=== PATIENT | male | born 1985 | race Caucasian/White ===

== ENCOUNTER 2016-05-20 00:30 | Emergency (ER) | payer SELFPAY ==
--- NOTE | 2016-05-20 00:40 | PDOC ---
History of Present Illness - General Chief Complaint: Laceration Stated Complaint: EYEBROW LAC Time Seen by Provider: 05/20/16 00:39 History Source: Patient Exam Limitations: No Limitations - History of Present Illness Timing/Duration: reports: just prior to arrival Past History - Past Medical History Allergies/Adverse Reactions: Allergies Allergy/AdvReac Type Severity Reaction Status Date / Time No Known Allergies Allergy Verified 05/20/16 00:39 Home Medications: Ambulatory Orders NK [No Known Home Medication] 05/20/16 Review of Systems - Review of Systems Able to Perform ROS?: Yes Comments:: 05/20/16 00:42 CONSTITUTIONAL: Absent: fever, chills, diaphoresis, generalized weakness, malaise, loss of appetite HEENT: +2cm horizontal left eyebrow lac; slight active bleed Absent: rhinorrhea, nasal congestion, throat pain, throat swelling, difficulty swallowing, mouth swelling, ear pain, eye pain, visual Changes CARDIOVASCULAR: Absent: chest pain, loss of consciousness, palpitations, irregular heart rate, peripheral edema RESPIRATORY: Absent: cough, shortness of breath, dyspnea with exertion, orthopnea, wheezing, stridor, hemoptysis GASTROINTESTINAL: Absent: abdominal pain, abdominal distension, nausea, vomiting, diarrhea, constipation, melena, hematochezia GENITOURINARY: Absent: dysuria, frequency, urgency, hesitancy, hematuria, flank pain, genital pain MUSCULOSKELETAL: Absent: myalgia, arthralgia, joint swelling SKIN: Absent: rash, itching, pallor Is the patient limited [place] proficient: No *Physical Exam - Physical Exam Comments: 05/20/16 00:43 GENERAL: Well developed, well nourished. Awake and alert. No acute distress. HEENT: 2cm horizontal left eyebrow lac Normocephalic, atraumatic. PERRLA, EOMI. No conjunctival pallor. Sclera are non- icteric. Moist mucous membranes. Oropharynx is clear. NECK: Supple. Full ROM. No JVD. Carotid pulses 2+ and symmetric, without bruits. No thyromegaly. No lymphadenopathy. CARDIOVASCULAR: Regular rate and rhythm. No murmurs, rubs, or gallops. Distal pulses are 2+ and symmetric. PULMONARY: No evidence of respiratory distress. Lungs clear to auscultation bilaterally. No wheezing, rales or rhonchi. ABDOMINAL: Soft. Non-tender. Non-distended. No rebound or guarding. No organomegaly. Normoactive bowel sounds. MUSCULOSKELETAL Normal range of motion at all joints. No bony deformities or tenderness. No CVA tenderness. EXTREMITIES: No cyanosis. No clubbing. No edema. No calf tenderness. SKIN: Warm and dry. Normal capillary refill. No rashes. No jaundice. Progress Note - Progress Note Progress Note: 30-year-old male presents to the emergency department complaining of a laceration to the left eyebrow. Patient states he accidentally hit it against the wall after he tripped. Patient denies any headache, dizziness, lightheadedness, visual disturbance, blurry vision, pain, neck pain. Tetanus: 4 years ago. Procedure: Betadine prep 1% lidocaine: 3 mL Normal saline: Copious irrigation (4) 5.0 prolene simple interrupted bacitracin Bandaid *DC/Admit/Observation/Transfer Diagnosis at time of Disposition: Laceration of eyebrow, left Qualifiers: Encounter type: initial encounter Qualified Code(s): S01.112A - Laceration without foreign body of left eyelid and periocular area, initial encounter - Discharge Dispostion Disposition: HOME Condition at time of disposition: Improved - Patient Instructions Printed Discharge Instructions: DI for Laceration Repair Additional Instructions: Keep the incision clean and dry for 24 hours. After 24 hours, you may allow the soap and water to rinse off your incision. Avoid direct pressure of the water to the incision. Pat the incision dry with a clean clothe. Apply a small amount of bacitracin onto the incision. Cover the incision loosely with a bandaid. Take tylenol/motrin as needed for pain. Follow up with your physician or the ER in 48 hours for a wound check. Return to the ER if you notice red streaks, increase redness/swelling/severe pain to the incision. Suture removal in 7 days.
[2016-05-20 00:41] VITALS: BP 130/71; PULSE 67; TEMP 98; BMI 22.4
--- NOTE | 2016-05-20 00:41 | PDOC ---
*Physical Exam - Vital Signs Last Vital Signs Temp Pulse Resp BP Pulse Ox 98 F 67 14 130/71 98 05/20/16 00:39 05/20/16 00:39 05/20/16 00:39 05/20/16 00:39 05/20/16 00:39 Medical Decision Making - Medical Decision Making 05/20/16 00:41 agree with care from SARAH Baeza *DC/Admit/Observation/Transfer Diagnosis at time of Disposition: Laceration of eyebrow, left Qualifiers: Encounter type: initial encounter Qualified Code(s): S01.112A - Laceration without foreign body of left eyelid and periocular area, initial encounter - Discharge Dispostion Disposition: HOME Condition at time of disposition: Improved - Referrals - Patient Instructions Printed Discharge Instructions: DI for Laceration Repair Additional Instructions: Keep the incision clean and dry for 24 hours. After 24 hours, you may allow the soap and water to rinse off your incision. Avoid direct pressure of the water to the incision. Pat the incision dry with a clean clothe. Apply a small amount of bacitracin onto the incision. Cover the incision loosely with a bandaid. Take tylenol/motrin as needed for pain. Follow up with your physician or the ER in 48 hours for a wound check. Return to the ER if you notice red streaks, increase redness/swelling/severe pain to the incision. Suture removal in 7 days. - Post Discharge Activity
== END 2016-05-20 00:45 | disposition home or self-care (01) ==
LOC: JER 00:30
PROC: 0HQ1XZZ Repair Face Skin, External Approach (ICD-10-PCS; principal; 2016-05-20)
DX: S01.112A Laceration without foreign body of left eyelid and periocular area, initial encounter (principal); W22.01XA Walked into wall, initial encounter; Y93.9 Activity, unspecified; Y92.9 Unspecified place or not applicable
CPT/HCPCS: 99281-25

== ENCOUNTER 2016-05-26 23:44 | Emergency (ER) | payer SELFPAY ==
[2016-05-26 23:52] VITALS: BP 119/68; PULSE 85; TEMP 97.6; BMI 25.8
--- NOTE | 2016-05-26 23:55 | PDOC ---
Suture Removal/Wound Check HPI - History of Present Illness Chief Complaint: Suture/Staple Removal (other) Stated Complaint: STITCHES REMOVAL Time Seen by Provider: 05/26/16 23:49 History Source: Yes: Patient Exam Limitations: Yes: No Limitations Treated at: [facility] ED - Previous ED Treatment Type of procedure performed on last visit: Yes: Laceration Repair Past History - Travel Traveled outside of the country in the last 30 days: No Close contact w/someone who was outside of country & ill: No - Past Medical History Allergies/Adverse Reactions: Allergies No Known Allergies Allergy (Verified 05/26/16 23:51) Home Medications: Ambulatory Orders NK [No Known Home Medication] 05/20/16 - Social History Smoking Status: Never smoked Suture Removal/Wound Check PE - Physical Exam Laceration/Wound Check Symptoms: reports: None Current Severity Level: None Maximum Severity Level: None Pain Localization: None *Review of Systems - Review of Systems Comments:: 05/26/16 23:53 left eyebrow lac incision; clean/dry/neg erythema/neg drainage neg pain on palp Constitutional: No: Chills, Fever HEENTM: No: Eye Pain Progress Note - Progress Note Progress Note: 30-year-old male presents to the emergency department for suture removal to the left eyebrow that was placed 1 week ago. Patient denies any pain, drainage, redness, fever or chills. Procedure: Left eybrow suture removed *DC/Admit/Observation/Transfer Diagnosis at time of Disposition: Encounter for removal of sutures - Discharge Dispostion Disposition: HOME Condition at time of disposition: Stable - Patient Instructions Printed Discharge Instructions: DI for Suture Removal
== END 2016-05-27 00:44 | disposition home or self-care (01) ==
LOC: JER 23:44
DX: Z48.02 Encounter for removal of sutures (principal)
CPT/HCPCS: 99281-25

== ENCOUNTER 2022-02-17 22:26 | Emergency (ER) | payer SELFPAY ==
[2022-02-17 22:46] VITALS: BP 140/87; PULSE 85; RESP 18; TEMP 98.3; BMI 25.0
[2022-02-17] MEDS ORDERED: ACETAMINOPHEN 1000 MG/100 ML BAG IVPB ONE (23:25)
[2022-02-17] MEDS ORDERED: SODIUM CHLORIDE 1,000 ML IV STA (23:25)
[2022-02-17] MEDS ORDERED: ACETAMINOPHEN INJECTION 100 ML IVPB ONE (23:36)
[2022-02-18 00:35] LABS: BASO % 0.9 % (0-2.0); HEMATOCRIT 46.9 % (35.4-49); LYMPH % 36.5 % (8-40); MCH 29.3 pg (25.7-33.7); MCHC 34.1 g/dl (32.0-35.9); MEAN PLT VOLUME 8.7 fl (7.5-11.1); NEUT % 51.6 % (42.8-82.8); PLATELET COUNT 265 10^3/uL (134-434); RBC 5.45 M/mm3 (4.00-5.60); RDW 13.2 % (11.9-15.9)
[2022-02-18 01:01] LABS: CALCIUM 9.3 mg/dL (8.5-10.1)
[2022-02-18 01:02] LABS: ALBUMIN 4.2 g/dl (3.4-5.0); BLOOD UREA NITROGEN 16.7 mg/dL (7-18)
[2022-02-18 01:05] LABS: CREATININE 0.7 mg/dL (0.55-1.3)
[2022-02-18 01:06] LABS: BILIRUBIN,TOTAL 0.3 mg/dL (0.2-1); TOT PROT 7.8 g/dl (6.4-8.2)
== END 2022-02-18 01:18 | disposition home or self-care (01) ==
LOC: JERFT 22:26 → JER 22:26 → JERFT 02-18 01:18
PROC: 3E033GC Introduction of Other Therapeutic Substance into Peripheral Vein, Percutaneous Approach (ICD-10-PCS; principal; 2022-02-17)
DX: R10.10 Upper abdominal pain, unspecified (principal)
CPT/HCPCS: 36415; 76705-TC; 80053; 83690; 85025; 99284-25; C9803-CS; U0003; U0005

== ENCOUNTER 2022-09-29 22:06 | Emergency (ER) | payer OTHER ==
[2022-09-29 22:22] VITALS: BP 124/87; PULSE 86; RESP 18; TEMP 98.2; BMI 24.4
[2022-09-29] MEDS ORDERED: KETOROLAC TROMETHAMINE 30 MG/1 ML VIAL ONE (23:27)
[2022-09-29] MEDS ORDERED: KETOROLAC TROMETHAMINE 30 MG/1 ML VIAL IM ONE (23:27)
[2022-09-29] MEDS ORDERED: KETOROLAC TROMETHAMINE 60 MG/2 ML VIAL IM ONE (23:48)
== END 2022-09-30 | disposition home or self-care (01) ==
LOC: JER 22:06 → JERFT 22:06
PROC: 3E0233Z Introduction of Anti-inflammatory into Muscle, Percutaneous Approach (ICD-10-PCS; principal; 2022-09-29)
DX: R07.0 Pain in throat (principal); R22.1 Localized swelling, mass and lump, neck; J03.90 Acute tonsillitis, unspecified
CPT/HCPCS: 36415; 86308; 87651; 99284-25

== ENCOUNTER 2023-06-15 14:32 | Emergency (ER) | payer OTHER ==
[2023-06-15 14:43] VITALS: BP 140/73; PULSE 100; RESP 18; TEMP 98.4; BMI 25.0
[2023-06-15] MEDS ORDERED: KETOROLAC TROMETHAMINE 30 MG/1 ML VIAL ONE (17:16)
[2023-06-15] MEDS: KETOROLAC TROMETHAMINE 30 MG/1 ML VIAL IM ONE (17:21)
== END 2023-06-15 17:53 | disposition home or self-care (01) ==
LOC: JER 14:32
PROC: 3E0233Z Introduction of Anti-inflammatory into Muscle, Percutaneous Approach (ICD-10-PCS; principal; 2023-06-15)
DX: M54.50 Low back pain, unspecified (principal); G89.29 Other chronic pain; M51.25 Other intervertebral disc displacement, thoracolumbar region
CPT/HCPCS: 72131-TC; 96372; 99284-25

== ENCOUNTER 2023-06-27 13:20 | Emergency (ER) | payer OTHER ==
[2023-06-27 13:25] VITALS: RESP 18; TEMP 98.2; BMI 25.0
[2023-06-27] MEDS ORDERED: ACETAMINOPHEN INJECTION 100 ML IVPB ONE (14:51)
[2023-06-27] MEDS: ACETAMINOPHEN 1000 MG/100 ML BAG IVPB ONE (15:04)
[2023-06-27 15:09] LABS: BASO % 0.7 % (0-2.0); EOS % 2.4 % (0-4.5); HEMATOCRIT 44.4 % (35.4-49); HEMOGLOBIN 14.9 GM/dL (11.7-16.9); LYMPH % 28.3 % (8-40); MCH 28.8 pg (25.7-33.7); MCHC 33.7 g/dl (32.0-35.9); MEAN CELL VOLUME 85.6 fl (80-96); MEAN PLT VOLUME 8.2 fl (7.5-11.1); MONO % 6.5 % (3.8-10.2); NEUT % 62.1 % (42.8-82.8); PLATELET COUNT 266 10^3/uL (134-434); RBC 5.18 M/mm3 (4.00-5.60); RDW 13.5 % (11.9-15.9); WHITE BLOOD COUNT 8.3 K/mm3 (4.0-10.0)
[2023-06-27 15:14] LABS: INR 1.05 (0.83-1.09); PROTHROMBIN TIME (PATIENT) 12.2 SEC (9.7-13.0)
[2023-06-27 15:17] LABS: ACTIVATED PTT 36.7 SECONDS (25.2-36.5)
[2023-06-27 15:37] LABS: ALBUMIN 4.4 g/dl (3.4-5.0); BLOOD UREA NITROGEN 16.6 mg/dL (7-18); CALCIUM 9.1 mg/dL (8.5-10.1)
[2023-06-27 15:40] LABS: CREATININE 0.8 mg/dL (0.55-1.3)
[2023-06-27 15:42] LABS: BILIRUBIN,TOTAL 0.4 mg/dL (0.2-1); TOT PROT 7.6 g/dl (6.4-8.2)
[2023-06-27 17:40] LABS: PH,URINE 6.5 (5.0-8.0); URINE APPEARANCE CLEAR; URINE BILIRUBIN NEGATIVE (NEGATIVE); URINE COLOR YELLOW; URINE GLUCOSE (UA) NEGATIVE (NEGATIVE); URINE KETONE NEGATIVE (NEGATIVE); URINE LEUK ESTERASE NEGATIVE (NEGATIVE); URINE NITRITE NEGATIVE (NEGATIVE); URINE PROTEIN NEGATIVE (NEGATIVE); URINE UROBILINOGEN 0.2 mg/dL (0.2-1.0)
[2023-06-27 18:43] VITALS: BP 123/81; PULSE 73
== END 2023-06-27 18:43 | disposition home or self-care (01) ==
LOC: JER 13:20
DX: R10.9 Unspecified abdominal pain (principal); K52.9 Noninfective gastroenteritis and colitis, unspecified
CPT/HCPCS: 36415; 74177-TC; 80053; 81003; 85025; 85610; 85730; 87086; 99285-25; Q9967

== ENCOUNTER 2023-09-08 22:27 | Emergency (ER) | payer OTHER ==
[2023-09-08 22:36] VITALS: BP 123/77; PULSE 80; RESP 18; TEMP 98.4; BMI 25.7
== END 2023-09-09 | disposition home or self-care (01) ==
LOC: JER 22:27
DX: A69.20 Lyme disease, unspecified (principal); R21 Rash and other nonspecific skin eruption
CPT/HCPCS: 36415; 86618; 99283-25